=== PATIENT | female | born 1960 | race Caucasian/White ===

== ENCOUNTER 2021-03-09 06:53 | Day surgery (SDC) | payer MEDICAID, SELFPAY ==
[~2021-03-09] VITALS: Ht 180.3 cm; Wt 111.1 kg
[2021-03-09] MEDS ORDERED: fentaNYL CITRATE/PF 100 MCG/2 ML AMP ONE ×2 (07:20→09:18)
[2021-03-09] MEDS ORDERED: MIDAZOLAM HCL 5 MG/5 ML VIAL ONE ×2 (07:20→09:18)
[2021-03-09] MEDS ORDERED: SIMETHICONE 40 MG/0.6 ML ML ONE (07:20)
[2021-03-09 15:32] VITALS: BP_SYST 135
[2021-03-09] MEDS ORDERED: DIPHENHYDRAMINE INJ 50 MG/ML VIAL ONE (16:55)
== END 2021-03-09 10:30 | disposition home or self-care (01) ==
LOC: SDS 06:53 → SMU 06:53 → SDS 10:30
PROVIDERS: ATTEND Internal Medicine
DX: Z12.11 Encounter for screening for malignant neoplasm of colon (principal); D12.5 Benign neoplasm of sigmoid colon; K22.2 Esophageal obstruction; K26.9 Duodenal ulcer, unspecified as acute or chronic, without hemorrhage or perforation; Z01.818 Encounter for other preprocedural examination; K29.80 Duodenitis without bleeding; K29.50 Unspecified chronic gastritis without bleeding; K21.9 Gastro-esophageal reflux disease without esophagitis; Z79.899 Other long term (current) drug therapy; Z20.822 Contact with and (suspected) exposure to COVID-19
CPT/HCPCS: 36415; 43239; 43249; 45380; 87081; 88305; 88312; 88313; 99152; 99153; G0378; J1200; J2250; J3010; J7030; U0003

== ENCOUNTER 2022-07-26 07:11 | Day surgery (SDC) | payer MEDICAID ==
[~2022-07-26] VITALS: Ht 180.3 cm; Wt 115.7 kg
[2022-07-26] MEDS ORDERED: fentaNYL CITRATE/PF 100 MCG/2 ML AMP ONE (09:59)
[2022-07-26] MEDS ORDERED: MIDAZOLAM HCL 5 MG/5 ML VIAL ONE (10:00)
[2022-07-26] MEDS ORDERED: DIPHENHYDRAMINE INJ 50 MG/ML VIAL ONE (10:10)
[2022-07-26 14:38] VITALS: BP_SYST 149
== END 2022-07-26 11:30 | disposition home or self-care (01) ==
LOC: SDS 07:11 → SMU 07:12 → SDS 11:30
PROVIDERS: ATTEND Internal Medicine
DX: R13.10 Dysphagia, unspecified (principal); K22.2 Esophageal obstruction; K20.90 Esophagitis, unspecified without bleeding; K44.9 Diaphragmatic hernia without obstruction or gangrene; Z20.822 Contact with and (suspected) exposure to COVID-19; Z86.010 Personal history of colon polyps; Z88.0 Allergy status to penicillin
CPT/HCPCS: 36415 ×2; 43249; 43239; 88305; 88313; 99152; 87426; U0003; G0378; J1200; J2250; J3010